=== PATIENT | female | born 1955 | race Caucasian/White ===

== ENCOUNTER 2022-09-04 11:32 | Day surgery (SDC) | payer MEDICARE, SELFPAY ==
[2022-08-20 09:26] VITALS: BMI 31.8
--- NOTE | 2022-09-03 16:20 | PM.HPGS ---
History of Present Illness History of Present Illness Consent: Risks, benefits, and alternatives have been discussed and questions answered. Patient agrees to proceed with procedure. Chief complaint: Neoplasm Screening Narrative: Nayeli Valdez is a 67 year old female referred for colon cancer screening. She has a family history of colon cancer in that her mother had colon cancer. Review of Systems Review of Systems: All systems reviewed & are unremarkable except as noted in HPI and below PMFSH Past Medical History Medical History HTN (hypertension) Hyperlipidemia Obesity Social History Social History Smoking status: Never smoker Alcohol intake: current Substance use: never Substance use type: does not use Living arrangements: alone Spiritual care concerns: No Meds Home Medications and Allergies Home Medications Medication Instructions Recorded Confirmed Type atorvastatin 10 mg tablet 10 mg PO DAILY 08/20/22 09/04/22 History hydrochlorothiazide 25 mg tablet 25 mg PO DAILY 08/20/22 09/04/22 History losartan 50 mg-hydrochlorothiazide 1 tablet PO DAILY 08/20/22 09/04/22 History 12.5 mg tablet verapamil 240 mg tablet,extended 240 mg PO DAILY 08/20/22 09/04/22 History release Allergies Allergy/AdvReac Type Severity Reaction Status Date / Time nitrous oxide AdvReac Unresponsiv Verified 09/04/22 11:54 e Tetanus Vaccines and Toxoid AdvReac Fever Verified 09/04/22 11:54 Exam Const: General: alert Orientation/consciousness: patient oriented x3 Resp: Auscultation: clear to auscultation bilaterally Cardio: Rhythm: regular rhythm GI: GI Palp: Yes Soft to palpation and No Tenderness to palpation present (GI) Neuro: General: patient oriented x3 Assessment and Plan Assessment and plan (1) Colon cancer screening: Code(s): Z12.11 - Encounter for screening for malignant neoplasm of colon Status: Acute Assessment and Plan: Colonoscopy with possible biopsy or polypectomy or cautery or injection of substances.
--- NOTE | 2022-09-04 10:45 | WPDANESEPPF ---
Anes - Initial Pre Proc Eval Procedure: Operation Date: 09/04/22 13:30 Proposed Procedures p Screening Colonoscopy - Alok Camarena MD Date/Time: 09/04/22 10:45 Surgeon: Alok Camarena MD Pre Op Diagnosis: Neoplasm Screening Patient Data Age: 67 Gender: F Height: 1.63 m Weight: 84 kg Allergies Allergy/AdvReac Type Severity Reaction Status Date / Time nitrous oxide AdvReac Unresponsiv Verified 09/04/22 11:54 e Tetanus Vaccines and Toxoid AdvReac Fever Verified 09/04/22 11:54 Home Medications Medication Instructions Recorded Confirmed Type atorvastatin 10 mg tablet 10 mg PO DAILY 08/20/22 09/04/22 History hydrochlorothiazide 25 mg tablet 25 mg PO DAILY 08/20/22 09/04/22 History losartan 50 mg-hydrochlorothiazide 1 tablet PO DAILY 08/20/22 09/04/22 History 12.5 mg tablet verapamil 240 mg tablet,extended 240 mg PO DAILY 08/20/22 09/04/22 History release Patient hx anesthesia problems: none Family hx anesthesia problems: none Results Review: All pre-operative results and documents have been reviewed as part of the pre-operative evaluation. [facility] Past Medical History Medical History (Updated 09/04/22 @ 10:46 by Nav Rowell MD) HTN (hypertension) Hyperlipidemia Obesity Social History Social History Smoking status: Never smoker Alcohol intake: current Substance use: never Substance use type: does not use Living arrangements: alone Spiritual care concerns: No Anes - Eval Final PreProcedure Day of Procedure 09/04/22 10:45 Patient weight: obese Heart: regular rate and rhythm Lungs: clear to auscultation and normal air movement Airway: Mallampati scale class II Neurological: alert and oriented Last oral intake: >/= 8 hours ASA classification: III Emergent: no Anesthetic plan: proceed Anesthesia type and monitoring: general GIVS Results Review: All pre-operative results and documents have been reviewed as part of the pre-operative evaluation. Informed Consent: The patient's anesthetic plan and its attendant risks and benefits were discussed with the patient/family/POA. Questions were solicited and answers provided to the satisfaction of the patient/family/POA.
[2022-09-04 11:54] VITALS: BP 152/86; PULSE 67; RESP 20; TEMP 36.8; O2SAT 97
[2022-09-04] MEDS: LACTATED RINGERS 1,000 ML 150 ML IV CONT (12:13)
[2022-09-04 13:39] VITALS: BP 119/64; PULSE 62; RESP 16; O2SAT 99
[2022-09-04 13:49] VITALS: BP 138/65; PULSE 68; RESP 16; O2SAT 100
[2022-09-04 14:00] VITALS: BP 154/74; PULSE 58; RESP 16; O2SAT 100
--- NOTE | 2022-09-04 14:01 | SUR.PHASEII ---
PT AWAKE AND ALERT. EATING AND DRINKING. TALKATIVE WITH FAMILY.
--- NOTE | 2022-09-04 15:11 | WPDANESPN ---
Anes - Prog Note Post-Op Date/Time: 09/04/22 15:11 Cardiovascular status: normal Respiratory status: normal Airway patency: baseline Mental status: baseline Post-Op hydration status: normal Vital Signs: Last Vital Signs Temp 36.8 C 09/04/22 11:54 Pulse 58 L 09/04/22 14:00 Resp 16 09/04/22 14:00 BP 154/74 H 09/04/22 14:00 Pulse Ox 100 09/04/22 14:00 O2 Del Method Room Air 09/04/22 14:00 Pain Score (VAS): 0 I/O: Intake & Output 09/03/22 09/04/22 09/04/22 23:59 07:59 15:59 Intake Total 100 Balance 100 Post-procedural complaints: none Patient Feedback: Patient satisfied with anesthetic care.
== END 2022-09-04 14:15 | disposition home or self-care (01) ==
PROVIDERS: PCP Internal Medicine; Visit Provider Internal Medicine Gastroenterology
PROC: 0DJD8ZZ Inspection of Lower Intestinal Tract, Via Natural or Artificial Opening Endoscopic (ICD-10-PCS; CPT 45378; principal; 2022-09-04 13:30)
DX: Z12.11 Encounter for screening for malignant neoplasm of colon (principal)
CPT/HCPCS: 45385; 45380

== ENCOUNTER 2022-09-05 08:09 | Outpatient (NON) | payer MEDICARE, SELFPAY | END 2022-09-05 08:10 | disposition home or self-care (01) | PROVIDERS: PCP Internal Medicine; Visit Provider Internal Medicine Gastroenterology | DX: Z12.11 Encounter for screening for malignant neoplasm of colon (principal); D12.5 Benign neoplasm of sigmoid colon; D12.4 Benign neoplasm of descending colon | CPT/HCPCS: 88305 ==